=== PATIENT | male | born 1970 | race Caucasian/White ===

== ENCOUNTER 2020-04-01 16:20 | Emergency (ER) | payer BC ==
[2020-04-01 16:34] VITALS: BP 146/98; PULSE 98; TEMP 99; BMI 28.5
== END 2020-04-01 18:35 | disposition home or self-care (01) ==
LOC: FER 16:20
PROC: 2W3DX1Z Immobilization of Left Lower Arm using Splint (ICD-10-PCS; principal; 2020-04-01)
DX: S52.532A Colles' fracture of left radius, initial encounter for closed fracture (principal)
CPT/HCPCS: 73090-TC-LT-FY; 73110-TC-LT-FY; 99284-25